=== PATIENT | male | born 1965 | race Caucasian/White ===

== ENCOUNTER 2016-11-19 09:17 | Day surgery (SDC) | payer OTHER ==
[~2016-11-19] VITALS: Ht 167.6 cm; Wt 111.1 kg
[~2016-11-19 09:17] MED LIST: OXYCODONE-ACET1 EACH PO; ZYRTEC10 M3 PO
[2016-11-19 09:57] VITALS: BP 147/81
[2016-11-19 13:00] VITALS: BP 168/86
[2016-11-19 13:56] VITALS: BP 169/99
[2016-11-19 14:36] VITALS: BP 154/87
== END 2016-11-19 14:53 | disposition home or self-care (01) ==
LOC: SDC 09:17
PROVIDERS: Urology
DX: N13.2 Hydronephrosis with renal and ureteral calculous obstruction (principal); N99.110 Postprocedural urethral stricture, male, meatal; F17.210 Nicotine dependence, cigarettes, uncomplicated; Z88.2 Allergy status to sulfonamides
CPT/HCPCS: 74420; 82365 90; 93005; C1876; J0690; J2250; J2405; J3010; J7050